=== PATIENT | male | born 1965 | race Hispanic/Latino ===

== ENCOUNTER 2019-12-28 14:37 | Inpatient (IN) | payer SELFPAY ==
[~2019-12-28] VITALS: Ht 170.2 cm; Wt 84.0 kg
--- NOTE | 2019-12-28 14:40 | NUR ---
PT AMB TO ROOM WITH LIMPING GAIT.
--- NOTE | 2019-12-28 15:40 | NUR ---
PT RESTING ON STRETCHER; NO S/S OF DISTRESS NOTED; MONITORING DEVICES APPLIED; PT INFORMED OF POC AND WAIT TIME; VSS; DENIES ANY NEEDS AT THIS TIME
[2019-12-28] MEDS ORDERED: METFORMIN HCL500 M1 PO (15:49)
[2019-12-28] MEDS ORDERED: GLIMEPIRIDE2 MG PO (15:49)
[2019-12-28 15:51] LABS: HEMATOCRIT 28.8 % (39.0-50.0); HEMOGLOBIN 9.6 g/dl (14.0-18.0); IMMATURE GRANULOCYTES 0.8 % (0.0-5.0); MEAN CELL VOLUME 89.7 fL CALC (80.0-100.0); MEAN CORPUSCULAR HGB 29.9 pG CALC (26.0-32.0); MEAN CORPUSCULAR HGB CONC 33.3 g/dL CAL (32.0-36.0); NEUT# 19.18 thou/uL (1.82-7.42); RED BLOOD COUNT 3.21 mill/uL (4.70-6.10); RED CELL DISTRI WIDTH 11.4 % (11.5-15.5)
[2019-12-28 15:55] LABS: ALBUMIN 2.6 g/dL (3.2-5.0); ALKALINE PHOSPHATASE 167 u/l (38-126); ANION GAP 15 (6-22 (CALC)); BILIRUBIN, TOTAL 0.4 mg/dL (0.0-1.4); BUN 20 mg/dL (9-20); BUN/CREATININE RATIO 17 (12-20 (CALC)); C-REACTIVE PROTEIN 7.5 mg/dL (0-0.9); CARBON DIOXIDE 23 mmol/l (22-30); CHLORIDE 93 mmol/l (95-108); CREATININE 1.2 mg/dL (0.7-1.3); GFR > 60 ML/MIN (>=60 (CALC)); GFR FOR AFR.AMER. > 60 ML/MIN (>=60 (CALC)); SGOT/AST 37 u/l (17-59); SODIUM 127 mmol/l (137-146); TOTAL PROTEIN 6.4 g/dL (6.3-8.2)
--- NOTE | 2019-12-28 16:39 | NUR ---
PT TO RADIOLOGY AT THIS TIME IN STABLE CONDITION
--- NOTE | 2019-12-28 17:30 | NUR ---
PT RESTING ON STRETCHER; NO S/S OF DISTRESS NOTED; MONITORING DEVICES IN PLACE; VSS; IV ANTIBIOTICS AND IVF INFUSING; CALL LIGHT WITHIN REACH; WILL CONTIUNE TO MONITOR
[2019-12-28 18:30] VITALS: BP 142/77
--- NOTE | 2019-12-28 18:30 | NUR ---
Admission Note Report Given to: KAREN CONNORS Transported by: Wheelchair X Stretcher Transported with: X Nurse Transporter X Patent IV O2 Processes Chemical Design Engineer Location: ICU X MS2
--- NOTE | 2019-12-28 22:00 | NUR ---
REPORT RECEIVED FROM Sonu RICHARDSON RN, CARE OF PT ASSUMED @ THIS TIME.
--- NOTE | 2019-12-29 00:42 | NUR ---
PER REPORT PT ARRIVED TO UNIT 12/28/19 @ 1830 FROM ED. ADMISSION AND ASSESMENT COMPLETED. RLE WITH UNSTAGEABLE ULCER BETWEEN 1ST AND 2ND TOE, WOUND BED COVERED IN DRY BLACK ESCHAR. FOUL SMELLING. OPEN TO AIR. +2 PITTING EDEMA TO ANKLE. PT DENIES PAIN. PHOTOS TAKEN AND PLACED IN CHART. PT DENIES NEEDS AT THIS TIME. CALL GONZALEZ WITHIN REACH, AGREES TO CALL PRN. BED LOCKED IN LOW POSITION W/ BEDRAILS UP X2. ITEMS WITHIN REACH.
[2019-12-29 04:34] VITALS: BP 150/87
--- NOTE | 2019-12-29 04:34 | NUR ---
PT APPEARS TO BE SLEEPING COMFORTABLY. NO APPARENT DISTRESS. RESPIRATIONS REGULAR AND UNLABORED. CALL GONZALEZ REMAINS WITHIN REACH, FALL AND SAFETY INTERVENTIONS REMAIN IN PLACE.
[2019-12-29 05:22] LABS: HEMATOCRIT 26.1 % (39.0-50.0); HEMOGLOBIN 8.7 g/dl (14.0-18.0); IMMATURE GRANULOCYTES 0.6 % (0.0-5.0); MEAN CELL VOLUME 89.1 fL CALC (80.0-100.0); MEAN CORPUSCULAR HGB 29.7 pG CALC (26.0-32.0); MEAN CORPUSCULAR HGB CONC 33.3 g/dL CAL (32.0-36.0); NEUT# 15.96 thou/uL (1.82-7.42); RED BLOOD COUNT 2.93 mill/uL (4.70-6.10); RED CELL DISTRI WIDTH 11.5 % (11.5-15.5)
[2019-12-29 05:45] LABS: ANION GAP 10 (6-22 (CALC)); BUN 18 mg/dL (9-20); BUN/CREATININE RATIO 20 (12-20 (CALC)); CARBON DIOXIDE 24 mmol/l (22-30); CHLORIDE 102 mmol/l (95-108); CREATININE 0.9 mg/dL (0.7-1.3); GFR > 60 ML/MIN (>=60 (CALC)); GFR FOR AFR.AMER. > 60 ML/MIN (>=60 (CALC)); POTASSIUM 4.2 mmol/l (3.5-5.1); SODIUM 132 mmol/l (137-146)
[2019-12-29 09:10] VITALS: BP 164/81
--- NOTE | 2019-12-29 09:10 | NUR ---
PT RESTING IN BED, NO SIGNS OF DISTRESS NOTED, RESP EVEN AND UNLABORED. PT ALERT AND ORIENTED X3, VINCENTIAN SPEAKING ONLY, DISCUSSED POC, PT VERBALIZED UNDERSTANDING. NOTED AREA TO R FOOT, OPEN AND DRAINING FOUL SMELLING DRAINAGE. ASSESSMENT COMPLETED, CALL LIGHT IN REACH,CONTINUE TO MONITOR.
--- NOTE | 2019-12-29 10:42 | NUR ---
PT RESTING IN BED, DISCUSSED MORPHINE PT AGREED TO TAKE MEDICATION. CALL LIGHT IN REACH,CONTINUE TO MONITOR.
--- NOTE | 2019-12-29 12:09 | NUR ---
DISCUSSED NORVASC, BP OBTAINED, PT AGREED TO TAKE NEW MEDICATION. DISCUSSED IS AND PT DEMONSTRATED TEACHING, TOTAL VOLUME 1500ML AT THIS TIME. CALL LIGHT IN REACH,CONTINUE TO MONITOR.
--- NOTE | 2019-12-29 14:53 | NUR ---
S: SALENA BOYLE is a 54 M who presents with SEPSIS. He has a history of RIGHT FOOT INFECTION. All medications in patient's chart were reviewed. O: VS: BP 159/79, P 86, RR 19,T 99.5 W 84 kg, HT 67IN, Scr= 0.9,CrCl= 99ml/min A: Blood culture <is pending Urine culture <is pending P: Patient is on ZOSYN 3.375GM Q6H AND VANCOMYCIN PHARMACY TO DOSE. Vancomycin ordered for pharmacy to dose. Start Vancomycin 1250MG IV Q8H. Vancomycin trough is drawn before the 4th dose on 12/30/19 1330. Vancomycin goal trough is between 15-20 mcg/ml>. Pharmacy will follow and or advise on antibiotics use as needed. ANI JARA PHARMD
[2019-12-29 15:10] VITALS: BP 177/85
--- NOTE | 2019-12-29 15:13 | NUR ---
PT TAKEN DOWN FOR CT OF R FOOT VIA WHEELCHAIR ACCOMPANIED BY GOLF CLUB WEIGHTER.
--- NOTE | 2019-12-29 15:36 | NUR ---
PT RETURNED FROM RADIOLOGY
--- NOTE | 2019-12-29 16:27 | NUR ---
RN AT BEDSIDE GIVING IV APRESOLINE FOR BP
[2019-12-29 16:29] VITALS: BP 179/82
[2019-12-29 18:13] VITALS: BP 148/71
--- NOTE | 2019-12-29 19:00 | NUR ---
REPORT RECEIVED FROM Lee AKSPER LPN, CARE OF PT ASSUMED @ THIS TIME. PT RESTING IN BED, NO APPARENT DISTRESS OR DISCOMFORT. DENIES NEEDS @ THIS TIME. CALL GONZALEZ WITHIN REACH, AGREES TO CALL PRN.
[2019-12-29 19:10] VITALS: BP 130/67
--- NOTE | 2019-12-29 21:15 | NUR ---
PHYSICAL ASSESMENT COMPLETED. VS TAKEN BY MATT @ 1910 ASSESSED. PLAN OF CARE REVIEWED, PT VERBALIZES UNDERSTANDING, DENIES QUESTIONS @ THIS TIME. SEE MAR FOR MED ADMINASTRATION. PT DENIES NEEDS @ THIS TIME, CALL GONZALEZ WITHIN REACH, AGREES TO CALL PRN. BED LOCKED IN LOW POSITION W/ BEDRAILS UP X2. ITEMS WITHIN REACH.
[2019-12-30] VITALS: BP 135/79
--- NOTE | 2019-12-30 01:21 | NUR ---
VS TAKEN BY DIRECTOR OF INSTITUTIONAL RESEARCH @ 0000 ASSESSED. PT APPEARS TO BE SLEEPING COMFORTABLY, NO APPARENT DISTRESS, RESP REGUALR AND UNLABORED. CALL GONZALEZ REMAINS WITHIN REACH, BED REMAINS LOCKED IN LOW POSITION W/ BEDRAILS UP X2.ITEMS REMAIN WITHIN REACH.
[2019-12-30 04:39] VITALS: BP 150/76
[2019-12-30 05:08] LABS: HEMATOCRIT 24.9 % (39.0-50.0); HEMOGLOBIN 8.2 g/dl (14.0-18.0); IMMATURE GRANULOCYTES 0.9 % (0.0-5.0); MEAN CELL VOLUME 91.2 fL CALC (80.0-100.0); MEAN CORPUSCULAR HGB CONC 32.9 g/dL CAL (32.0-36.0); NEUT# 14.39 thou/uL (1.82-7.42); RED BLOOD COUNT 2.73 mill/uL (4.70-6.10); RED CELL DISTRI WIDTH 11.8 % (11.5-15.5)
[2019-12-30 05:16] LABS: ALBUMIN 2.1 g/dL (3.2-5.0); ALKALINE PHOSPHATASE 129 u/l (38-126); ANION GAP 10 (6-22 (CALC)); BILIRUBIN, TOTAL 0.3 mg/dL (0.0-1.4); BUN 18 mg/dL (9-20); BUN/CREATININE RATIO 15 (12-20 (CALC)); CARBON DIOXIDE 24 mmol/l (22-30); CHLORIDE 103 mmol/l (95-108); CREATININE 1.2 mg/dL (0.7-1.3); GFR > 60 ML/MIN (>=60 (CALC)); GFR FOR AFR.AMER. > 60 ML/MIN (>=60 (CALC)); POTASSIUM 4.1 mmol/l (3.5-5.1); SGOT/AST 22 u/l (17-59); SODIUM 134 mmol/l (137-146); TOTAL PROTEIN 5.5 g/dL (6.3-8.2)
--- NOTE | 2019-12-30 06:45 | NUR ---
VS TAKEN BY CRISTOPHER AM ASSESSED. PT APPEARS TO BE SLEEPING COMFORTABLY, NO APPARENT DISTRESS, RESP REGUALR AND UNLABORED. CALL GONZALEZ REMAINS WITHIN REACH, BED REMAINS LOCKED IN LOW POSITION W/ BEDRAILS UP X2.ITEMS REMAIN WITHIN REACH.
[2019-12-30 07:52] VITALS: BP 160/72
--- NOTE | 2019-12-30 07:52 | NUR ---
PT SITTING ON SIDE OF THE BED. A&O X3. NO DISTRESS NOTED. IS DEVICE AT BEDSIDE, PT DEMONSTRATING PROPER USE OF DEVICE WITH GOAL SET AT 2000. EXPLAINED TO PT THAT DEVICE SHOULD BE USED X10 EVERY HOUR WHILE AWAKE, PT VERBALIZED UNDERSTANDING. CELLULITIS AND DIABETIC WOUND NOTED TO RT FOOT. FOUL ODOR NOTED WITH CLEAR DRAINAGE. PER RADHA GUALDE KEEP OPEN TO AIR WITH NO DRESSING. ASSESSMENT COMPLETED. CALL LIGHT IN REACH. CONTINUE TO MONITOR.
[2019-12-30 11:33] VITALS: BP 150/76
--- NOTE | 2019-12-30 11:40 | NUR ---
DR KENT AT BEDSIDE DISCUSSING POC WITH PT WITH I&D SURGERY TO BE DONE TOMORROW . PER DONTE PT TO BE NPO AFTER MIDNIGHT. PT VERBALIZED UNDERSTANDING.
--- NOTE | 2019-12-30 14:14 | NUR ---
VANCOTROUGH 14. ABX GIVEN.
--- NOTE | 2019-12-30 14:46 | NUR ---
S: SALENA BOYLE is a 54 M who presents with WOUND INFECTION. He has a history of FOOT INFECTION . All medications in patient's chart were reviewed. O: VS: BP 150/76, P 79, RR 18,T 99 W 84kg, HT 67IN, Scr=1.2 A: Blood culture <is pending P: Patient is on ZOSYN AND VANCOMYCIN. TROUGH IS 14 ON 12/30/19 Vancomycin ordered for pharmacy to dose. Start Vancomycin 1 GRAM IV Q8H. Vancomycin trough is drawn before the 4th dose on 01/01/20 @0530 . Vancomycin goal trough is between <10-20 mcg/ml>. Pharmacy will follow and or advise on antibiotics use as needed.
[2019-12-30 15:20] VITALS: BP 152/77
--- NOTE | 2019-12-30 17:25 | NUR ---
WERO HERRERA AT BEDSIDE DISCUSSING ANESTHESIA AND OBTAINING CONSENT FOR TOMORROW.
[2019-12-30 18:55] VITALS: BP 150/78
--- NOTE | 2019-12-30 19:45 | NUR ---
ASSESSMENT COMPLETED. NO DISTRESS NOTED; DENIES PAIN/NEEDS. RIGHT FOOT WITH WOUND NOTED AND SCREEN PRINTER HELPER PER PHYSICIAN; EDEMA NOTED. PT. REMINDED OF NPO STATUS AFTER MIDNIGHT. PT. REPORTS NO BMSINCE 12/28/19 AND OFFERED PRUNE JUICE; PT. DECLINES. RIGHT FOOT ELEVATED ONTO PILLOW AND ENCOURAGED TO DO SO WHILE IN BED. IV SITE PATENT AND ORDERED IVF INFUSING WELL. ENCOURAGED TO CALL FOR ANY NEEDS. CALL LIGHT IS IN REACH. WILL CONTINUE TO MONITOR.
--- NOTE | 2019-12-30 23:36 | NUR ---
PT. RESTING IN BED WITH RLE ELEVATED ONTO PILLOW. OFFERED PO FLUIDS PRIOR TO NPO STATUS AT MIDNIGHT; PT. DID HAVE A YOGURT AND PRUNE JUICE PROVIDED BY THIS HERPETOLOGY TEACHER TO ASSIST WITH BM FOR SNACK TONIGHT. INSTRUCTED TO USE URINAL FOR ACCURATE OUTPUT. DENIES NEEDS FOR PAIN MEDICATION AT THIS TIME. INSTRUCTED TO CALL FOR ANY NEEDS AND VERBALIZES UNDERSTANDING. CALL LIGHT IS IN REACH.
[2019-12-31] VITALS (15 sets, daily range): BP systolic 119–177; BP diastolic 63–89
--- NOTE | 2019-12-31 02:00 | NUR ---
RESTING IN BED WITH EYES CLOSED. RESP. EVEN AND UNLABORED.
--- NOTE | 2019-12-31 05:00 | NUR ---
PT. SET UP FOR SHOWER AND LINENS CHANGED. PT. HAS REMAINED NPO SINCE MIDNIGHT. SCD MACHINE IN ROOM FOR POST OP. I/S AT BEDSIDE.
--- NOTE | 2019-12-31 07:05 | NUR ---
REPORT RECEIVED FROM ELAINERN;PT RESTING IN SUPINE POSITION;PT IS NOTED TO BE FAROESE SPEAKING ONLY BUT DOES VERBALIZE UNDERSTANDING OF PLANS TO GO TO OR @ 0830AM;RESPIRATIONS EVEN AND UNLABORED ON RA;PT DENIES ANY CURRENT PAIN OR DISCOMFORTS;IV FLUIDS INFUSING WITH EASE PER ORDER;NPO DIET REINFORCED;PT DENIES ANY ADDITIONAL NEEDS AT THIS TIME AND IS ENCOURAGED TO CALL FOR ASSISTANCE IF NEEDED;ALL SAFETY PRECAUTIONS REINFORCED WITH BED IN THE LOWEST POSITION AND CALL LIGHT IN REACH;WILL CONTINUE TO MONITOR
--- NOTE | 2019-12-31 07:39 | NUR ---
PT TRANSPORTED TO OR IN STABLE CONDITION VIA STRETCHER ACCOMPANIED BY KAREN GARAY.
--- NOTE | 2019-12-31 10:36 | NUR ---
PT ARRIVED BACK TO MED/SURG ROOM 269 IN STABLE CONDITION VIA STRETCHER ACCOMPANIED BY OR STAFF MEMBER.PT ASSISTED TO HOSPITAL BED WITH X2 PERSON ASSIST;PT RE-ORIENTED TO ROOM AND CALL LIGHT SYSTEM;PT DENIES ANY CURRENT PAIN OR DISCOMFORTS,PAIN SCALE AND REPORTING EDUCATED;VS OBTAINED AND TO BE OBTAINED Q15 MINS PER [facility] PROTOCAL;RESPIRATIONS EVEN AND UNLABORED ON O2 @ 4L VIA VENTI MASK;ABDOMEN DISTENDED/SOFT ON PALPATION AND HYPOACTIVE IN ALL 4 QUADRANTS;WEAK LEFT PEDAL PULSE,SCD IN PLACE;RIGHT FOOT ELEVATED ON A PILLOW PER ORDER AND DRESSING CDI,WILL REINFORCE NEEDED;CAP REFILL LESS THAN 3 SECONDS;#20G TO LAC INFUSING NS WITH EASE PER ORDER,SITE APPEARS HEALTHY;ACCUCHECK 243;WATER PROVIDED PER REQUEST;PT DENIES ANY ADDITIONAL NEEDS AT THIS TIME AND IS ENCOURAGED TO CALL FOR ASSISTANCE IF NEEDED;FALL PRECAUTIONS IN PLACE AND PT REMINDED ON NWB STATUS TO RLE;CALL LIGHT IN REACH;WILL CONTINUE TO MONITOR
--- NOTE | 2019-12-31 10:54 | NUR ---
AT BEDSIDE DISCUSSING POC WITH PT WITH TRANSLATION PROVIDED BY [employer].
--- NOTE | 2019-12-31 11:44 | NUR ---
XRAY AT BEDSIDE
--- NOTE | 2019-12-31 11:45 | NUR ---
PT RESTING IN SEMI FOWLERS POSITION;RESPIRATIONS EVEN AND UNLABORED ON RA;PT DENIES ANY CURRENT PAIN OR DISCOMFORTS;IV FLUIDS INFUSING WITH EASE TO LAC AND ABX STARTED AT THIS TIME;ACUCHECK 243,PT COVERED WITH SLIDING SCALE NOVOLOG PER ORDER;RLE REMAINS ELEVATED;PT DENIES ANY ADDITIONAL NEEDS AND IS ENCOURAGED TO CALL FOR ASSISTANCE IF NEEDED;CALL LIGHT IN REACH;WILL CONTINUE TO MONITOR
[2019-12-31 14:50] LABS: HEMATOCRIT 23.2 % (39.0-50.0); HEMOGLOBIN 7.7 g/dl (14.0-18.0); MEAN CORPUSCULAR HGB 30.2 pG CALC (26.0-32.0); MEAN CORPUSCULAR HGB CONC 33.2 g/dL CAL (32.0-36.0); RED BLOOD COUNT 2.55 mill/uL (4.70-6.10); RED CELL DISTRI WIDTH 11.9 % (11.5-15.5)
[2019-12-31 15:43] LABS: ANION GAP 9 (6-22 (CALC)); BUN 17 mg/dL (9-20); BUN/CREATININE RATIO 13 (12-20 (CALC)); CARBON DIOXIDE 22 mmol/l (22-30); CHLORIDE 107 mmol/l (95-108); CREATININE 1.3 mg/dL (0.7-1.3); GFR 58 ML/MIN (>=60 (CALC)); GFR FOR AFR.AMER. > 60 ML/MIN (>=60 (CALC)); POTASSIUM 4.3 mmol/l (3.5-5.1); SODIUM 134 mmol/l (137-146)
--- NOTE | 2019-12-31 15:50 | NUR ---
PT RESTING IN SEMI FOWLERS POSITION.RESPIRATIONS EVEN AND UNLABORED ON RA;PT REPORTS RLE PAIN RATING 6/10 ON THE PAIN SCALE AND REQUESTS PAIN MEDICATION,PT TO BE MEDICATED WITH PRN MORPHINE 2MG IVP PER ORDERS;RLE REMAINS ELEVATED WITH DRESSING CDI;IV FLUIDS INFUSING WITH EASE TO LAC;ASSESSMENT REMAINS UNCHANGED AT THIS TIME;PT ENCOURAGED TO CALL FOR ASSISTANCE IF NEEDED;FALL PRECAUTIONS IN PLACE WITH BED IN THE LOWEST POSITION AND CALL LIGHT IN REACH;WILL CONTINUE TO MONITOR
--- NOTE | 2019-12-31 18:34 | NUR ---
PT RESTING IN SEMI FOWLERS POSITION;PT DENIES ANY CURRENT PAIN OR DISCOMFORT;CURRENT TEMP 100.1,BLANKETS REMOVED,AC LOWERED AND TYLENOL 650MG PO TO BE ADMINISTERED;CURRENT BP 168/84 HR 90, PT MEDICATED WITH PRN APRESOLINE 10MG IVP BY KAREN AMARO;PT DENIES ANY ADDITIONAL NEEDS;CALL LIGHT IN REACH;WILL CONTINUE TO MONITOR FOR EFFECTIVENESS
--- NOTE | 2019-12-31 20:40 | NUR ---
ASSESSMENT COMPLETED. NO DISTRESS NOTED; DENIES NEEDS/PAIN. UPDATED ON POC. RIGHT FOOT ELEVATED ONTO PILLOW; SURGICAL DRESSING IN PLACE, GREAT TOE APPEARS SLIGHLY PALE; GOOD MOVEMENT AND CAP REFILL. LEFT ARM APPEARS SLIGHTLY EDEMETOUS, WILL REMOVE IV SITE AND RESTART SITE. ENCOURAGED USE OF I/S AND VERBALIZES UNDERSTANDING. CALL LIGHT IS IN REACH. WILL CONTINUE TO MONITOR.
--- NOTE | 2019-12-31 21:30 | NUR ---
PT. PROVIDED WITH SCHED MEDS ALONG WITH PRN MOM TO ASSIST WITH BM AND ACTIVIA YOGURT GIVEN. URINAL AT BEDSIDE. LAC IV SITE REMOVED AND NEW IV STARTED TO RIGHT HAND X1 ATTEMPT. PT. TOLERATED WELL.
[2020-01-01] VITALS (7 sets, daily range): BP systolic 142–171; BP diastolic 78–97
--- NOTE | 2020-01-01 | NUR ---
PT. ASSISTED TO THE BATHROOM WITH STBY ASST AND WALKER, PT. RE-EDUCATED ON NWB STATUS TO RIGHT FOOT. PT. PASSING GAS, BUT NO BM STILL AND VOIDED IN TOILET. ASSISTED BACK TO BED. DENIES NEEDS FOR PAIN MEDS AT THIS TIME. CALL LIGHT IS IN REACH.
--- NOTE | 2020-01-01 00:29 | NUR ---
PT. CONTINUES TO BE ABLE TO WIGGLE TOES TO RIGHT FOOT AND FEEL SENSATION. DRESSING REMAINS IN PLACE. DENIES NEEDS FOR PAIN MEDS.
--- NOTE | 2020-01-01 02:08 | NUR ---
PT. RESTING IN BED WITH EYES CLOSED. DRESSING REMAINS CDI. NO CHANGE TO EXTREMITY. COLOR REMAINS THE SAME.
--- NOTE | 2020-01-01 05:50 | NUR ---
PT. RESTING IN BED WITH NO DISTRESS NOTED; DENIES NEEDS/PAIN. COLOR TO RIGHT FOOT APPEAR THE SAME, NO CHANGE. PT. ABLE TO WIGGLE TOES AND VERBALIZES SENSATION. MOM WITH WARM PRUNE JUICE GIVEN TO ASSIST WITH BM. ENCOURAGED TO CALL FOR ANY NEEDS. CALL LIGHT IS IN REACH.
--- NOTE | 2020-01-01 07:10 | NUR ---
REPORT RECEIVED FROM ELAINERN;PT RESTING IN SEMI FOWLERS POSITION;INTRODUCED SELF TO PT AND POC DISCUSSED;RESPIRATIONS EVEN AND UNLABORED ON RA;PT DENIES ANY CURRENT PAIN OR NEEDS;IV FLUIDS INFUSING WITH EASE PER ORDER;RLE ELEVATED ON A PILLOW;PT ENCOURAGED TO CALL FOR ASSISTANCE IF NEEDED;FALL PRECAUTIONS IN PLACE WITH BED IN THE LWOEST POSITION AND CALL LIGHT IN REACH;WILL CONTINUE TO MONITOR
[2020-01-01 07:28] LABS: HEMATOCRIT 24.9 % (39.0-50.0); MEAN CELL VOLUME 91.9 fL CALC (80.0-100.0); MEAN CORPUSCULAR HGB 29.5 pG CALC (26.0-32.0); MEAN CORPUSCULAR HGB CONC 32.1 g/dL CAL (32.0-36.0); NEUT# 14.33 thou/uL (1.82-7.42); RED BLOOD COUNT 2.71 mill/uL (4.70-6.10); RED CELL DISTRI WIDTH 12.1 % (11.5-15.5)
[2020-01-01 07:46] LABS: ALBUMIN 2.5 g/dL (3.2-5.0); BILIRUBIN, TOTAL 0.2 mg/dL (0.0-1.4); CREATININE 1.9 mg/dL (0.7-1.3); POTASSIUM 4.2 mmol/l (3.5-5.1); TOTAL PROTEIN 6.5 g/dL (6.3-8.2)
--- NOTE | 2020-01-01 07:49 | NUR ---
AT BEDSIDE DISCUSSING POC WITH PT.
--- NOTE | 2020-01-01 08:00 | NUR ---
PT RESTING IN SEMI FOWLERS POSITION,A&O X3;VS OBTAINED AND ASSESSMENT COMPLETED;PT DENIES ANY CURRENT PAIN OR DISCOMFORTS,PAIN SCALE AND REPORTING EDUCATED;PT IS POST OP DAY #1 I&D OF RIGHT FOOT;RESPIRATIONS EVEN AND UNLABORED ON RA,CLEAR LUNG SOUNDS;PT ENCOURAGED TO USE I.S. 10X PER HOUR AND VERBALIZES UNDERSTANDING;ABDOMEN SOFT ON PALPATION AND ACTIVE IN ALL 4 QUADRANTS;WEAK LEFT PEDAL PULSE,UNABLE TO PALPATE RIGHT DUE TO DRESSING IN PLACE;DRESSING CDI AND RT FOOR ELEVATED ON A PILLOW,CAP REFILL LESS THAN 3 SECONDS.GREAT TOE REMAINS PALE;#220G TO RH HAND INFUSING NS @ 70ML/HR,SITE APPEARS HEALTHY;PT DENIES ANY ADDITIONAL NEEDS AT THIS TIME AND IS ENCOURAGED TO CALL FOR ASSISTANCE IF NEEDED;FALL PRECAUTIONS IN PLACE WITH BED IN THE LOWEST POSITION AND PT RE-EDUCATED ON NWB TO RIGHT FOOT;PT ENCOURAGED TO CALL FOR ASSISTANCE IF NEEDED;CALL LIGHT IN REACH;WILL CONTINUE TO MONITOR
--- NOTE | 2020-01-01 09:40 | NUR ---
AT BEDSIDE DISCUSSING POC,TRANSLATION PROVIDED BY [facility] [employer]
--- NOTE | 2020-01-01 11:17 | NUR ---
PT RESTING IN SEMI FOWLERS POSITION;RESPIRATIONS EVEN AND UNLABORED ON RA;PT DENIES ANY CURRENT PAIN OR DISCOMFORTS;RLE REMAINS ELEVATED,RT GREAT TOE NOTED TO BE BLUE AND COLD. AND CALVIN ALREADY AWARE AND NO NEW ORDERS AT THIS TIME;IV FLUIDS INFUSING WITH EASE AND ABX INITATED;ACCUCHECK 249, PT COVERED WITH SLIDING SCALE NOVOLOG PER ORDER;PT ENCOURAGED TO CALL FOR ASSISTANCE IF NEEDED;CALL LIGHT IN REACH;WILL CONTINUE TO MONITOR
--- NOTE | 2020-01-01 11:23 | NUR ---
SPOKE WITH ELINA,OR ZACKERY REGARDING PT POC. PER ELINA PT TO BE PICKED UP FROM MED/SURG TOMORROW 01/02/20 FOR METATARSAL AMPUTATION AND POSSIBLE WOUND VAC PLACEMENT.
--- NOTE | 2020-01-01 15:30 | NUR ---
PT APPEARS TO BE SLEEPING IN SEMI FOWLERS POSITION;RESPIRATIONS APPEAR EVEN AND UNLABORED ON RA;NO S/S OF DISTRESS NOTED;IV FLUIDS INFUSING WITH EASE PER ORDER;RLE REMAINS ELEVATED WITH RT GREAT TOE APPEARING BLUE,MD ALREADY AWARE;PER OR PT TO BE TAKEN DOWN FOR POSSIBLE AMPUTATION OF RT MATATARSALS AND POSSIBLE WOUND VAC PLACEMENT ON 01/03/20 INSTEAD OF 01/02/20 @ APPROX 1430;ALL SAFETY PRECAUTIONS REMAIN IN PLACE WITH CALL LIGHT IN REACH;WILL CONTINUE TO MONITOR
--- NOTE | 2020-01-01 16:25 | NUR ---
S: SALENA BOYLE is a 54 M who presents with cellulitis/infection on right foot. He has a history of uncontrolled DM and HTN. All medications in patient's chart were reviewed. O: VS: BP 157/97 mmHg, P 83 bpm, RR 20 breaths/min, T 98.3 F W 84 kg, HT 67 in, Scr 1.9, CrCl 54 ml/min A: Blood culture is pending. P: Patient is on Zosyn 3.375g IV q6h. Vancomycin ordered for pharmacy to dose. Pt had been receiving vancomycin 1g IV q8h. Initial trough before 4th dose was 14, therefore dose was continued. Next trough was drawn and level was 27. Pt SCr increased from 0.9 to 1.9 -- dose changed to vancomycin 750mg IV q12h starting 12/31 @ 2200. Vancomycin trough to be drawn 30 minutes before 4th dose on 01/02 @ 0930. Vancomycin goal trough is between 10-15 mcg/ml. Pharmacy will follow and or advise on antibiotics use as needed.
--- NOTE | 2020-01-01 19:38 | NUR ---
PT. RESTING IN BED WITH NO DISTRESS NOTED; DENIES NEEDS/PAIN AT THIS TIME.ASSESSMENT COMPLETED. RLE ELEVATED ONTO PILLOW. RIGHT GREAT TOE DISCOLORED, PT. ABLE TO WIGGLE ALL TOES. POSTERIOR TIBIAL PULSE PRESENT TO RIGHT FOOT; SURGICAL DRESSING CDI. ENCOURAGED USE OF I/S. PT. REPORTS SMALL HARD BM IN THE AFTERNOON TODAY. B/P ELEVATED 178/80 AND MEDICATED WITH ORDERED IV APRESOLINE, WILL REASSESS. CALL LIGHT IS IN REACH.
--- NOTE | 2020-01-01 23:08 | NUR ---
RESTING IN BED WITH EYES CLOSED; RESP. EVEN AND UNLABORED. NO DISTRESS NOTED; RIGHT FOOT REMAINS WITH SAME COLOR AND ELEVATED. CALL LIGHT IS IN REACH. WILL CONTINUE TO MONITOR.
[2020-01-02] VITALS (7 sets, daily range): BP systolic 146–176; BP diastolic 76–92
--- NOTE | 2020-01-02 02:20 | NUR ---
RESTING IN BED WITH NO DISTRESS NOTED; DENIES NEEDS/PAIN. RLE ELEVATED. CALL LIGHT IS IN REACH.
--- NOTE | 2020-01-02 04:47 | NUR ---
ELEVATED B/P AT 172/80 AND MEDICATED WITH ORDERED PRN HYDRALAZINE; WILL REASSESS. MEDICATED WITH ORDERED PRN MOM WELL TO ASSIST WITH BM. DENIES NEEDS/PAIN. ENCOURAGED TO CALL FOR ANY NEEDS.
--- NOTE | 2020-01-02 05:35 | NUR ---
REASSESSED B/P AND NOW 160/81; DENIES NEEDS/PAIN. CALL LIGHT IS IN REACH.
--- NOTE | 2020-01-02 07:10 | NUR ---
REPORT RECEIVED FROM KAREN HENRY;PT APPEARS TO BE SLEEPING IN SEMI FOWLERS POSITION;RESPIRATIONS EVEN AND UNLABORED ON RA;NO S/S OF DISTRESS NOTED;IV FLUIDS INFUSING WITH EASE PER ORDER;RLE ELEVATED ON A PILLOW;ALL SAFETY PRECAUTIONS REINFORCED WITH BED IN THE LOWEST POSITION AND CALL LIGHT IN REACH;WILL CONTINUE TO MONITOR
--- NOTE | 2020-01-02 08:00 | NUR ---
PT RESTING IN SEMI FOWLERS POSITION,A&O X3;PT IS SIERRA LEONEAN SPEAKING ONLY,TRANSLATION PROVIDED BY [facility] [employer];VS OBTAINED AND ASSESSMENT COMPLETED,CURRENT BP 176/92 HR 84;ALL MORNING MEDICATIONS ADMINISTERED AT THIS TIME;PT DENIES ANY CURRENT PAIN OR DISCOMFORTS,PAIN SCALE AND REPORTING EDUCATED;PT IS POST OP DAY #2 I&D TO RIGHT FOOT;RESPIRATIONS EVEN AND UNLABORED ON RA,CLEAR LUNG SOUNDS;I.S. AT BEDSIDE AND PT DEMONSTRATED USE,ENCOURAGED USE 10X PER HOUR;ABDOMEN DISTENDED/SOFT ON PALPATION AND ACTIVE IN ALL 4 QUADRANTS;WEAK LEFT PEDAL PULSES, UNABLE TO PALPATE RIGHT DUE TO DRESSING;DRESSING CDI TO RT FOOT AND ELEVATED ON A PILLOW;RIGHT GREAT TOE NOTED TO BE BLUE TONED AND COLD, MD ALREADY AWARE;NWB TO RIGHT FOOT;#22G TO RIGHT HAND INFUSING NS @ 100ML/HR,SITE APPEARS HEALTHY;ACCUCHECK 143;PT DENIES ANY ADDITIONAL NEEDS AT THIS TIME AND IS ENCOURAGED TO CALL FOR ASSISTANCE IF NEEDED;CALL LIGHT IN REACH;WILL CONTINUE TO MONITOR
[2020-01-02 08:11] LABS: HEMATOCRIT 28.7 % (39.0-50.0); HEMOGLOBIN 9.3 g/dl (14.0-18.0); IMMATURE GRANULOCYTES 1.4 % (0.0-5.0); MEAN CORPUSCULAR HGB 29.8 pG CALC (26.0-32.0); MEAN CORPUSCULAR HGB CONC 32.4 g/dL CAL (32.0-36.0); NEUT# 15.7 thou/uL (1.82-7.42); RED BLOOD COUNT 3.12 mill/uL (4.70-6.10); RED CELL DISTRI WIDTH 12.3 % (11.5-15.5)
[2020-01-02 08:31] LABS: ALBUMIN 2.6 g/dL (3.2-5.0); BILIRUBIN, TOTAL 0.2 mg/dL (0.0-1.4); MAGNESIUM 1.9 mg/dL (1.6-2.3); POTASSIUM 3.9 mmol/l (3.5-5.1); TOTAL PROTEIN 6.9 g/dL (6.3-8.2)
--- NOTE | 2020-01-02 09:02 | NUR ---
KAREN BANUELOS AT BEDSIDE DISCUSSING POC.
--- NOTE | 2020-01-02 09:08 | NUR ---
BP RE-CHECK 155/78 HR 80
--- NOTE | 2020-01-02 09:10 | NUR ---
VIN,ANRP AT BEDSIDE DISCUSSING POC.
--- NOTE | 2020-01-02 09:17 | NUR ---
AT BEDSIDE DISCUSSING POC.
--- NOTE | 2020-01-02 11:10 | NUR ---
PT RESTING IN SEMI FOWLERS;RESPIRATIONS EVEN AND UNLABORED ON RA;PT DENIES ANY CURRENT PAIN OR DISCOMFORTS;IV FLUIDS INFUSING WITH EASE PER ORDER;ACCUCHECK 196, PT COVERED WITH SLIDING SCALE NOVOLOG PER ORDER;ASSESSMENT REMAINS UNCHANGED AT THIS TIME;ENCOURAGED TO CALL FOR ASSISTANCE IF NEEDED;CALL LIGHT IN REACH;WILL CONTINUE TO MONITOR
--- NOTE | 2020-01-02 15:30 | NUR ---
PT APPEARS TO BE SLEEPING IN SEMI FOWLERS POSITION;RESPIRATIONS EVEN AND UNLABORED ON RA;NO S/S OF DISTRESS NOTED;IV FLUIDS INFUSING WITH EASE;RLE ELEVATED ON A PILLOW;ASSESSMENT REMAINS UNCHANGED AT THIS TIME;ALL SAFETY PRECAUTIONS REMAIN IN PLACE WITH BED IN THE LOWEST POSITION AND CALL LIGHT IN REACH;WILL CONTINUE TO MONITOR
--- NOTE | 2020-01-02 19:05 | NUR ---
REPORT FROM MARGARET ROGERS. PT RESTING IN BED WATCHING TV. NO APPARENT DISTRESS NOTED. PT DENIES ANY PAIN OR DISCOMFORT. DRESSING TO RLE, CDI, RIGHT GREAT TOE BLUE IN COLOR REPORTED FROM OFFGOING NURSE. PT AWARE OF NPO AFTER MIDNIGHT FOR SX TOMORROW. NO CURRENT WANTS OR NEEDS. IV SITE APPEARS HEALTHY. CALL LIGHT WITHIN REACH. WILL CONTINUE TO MONITOR.
--- NOTE | 2020-01-02 21:05 | NUR ---
PT MEDICATED ORDERED. SNACK PROVIDED. DENIES ANY PAIN OR DISCOMFORT. CALL LIGHT WITHIN REACH. WILL CONTINUE TO MONITOR.
--- NOTE | 2020-01-02 23:51 | NUR ---
PT RESTING IN BED WITH EYES CLOSED. NO APPARENT DISTRESS NOTED. CALL LIGHT WITHIN REACH. WILL CONTINUE TO MONITOR.
[2020-01-03] VITALS (11 sets, daily range): BP systolic 151–176; BP diastolic 73–88
--- NOTE | 2020-01-03 03:07 | NUR ---
PT RESTING IN BED WITH EYES CLOSED. NO APPARENT DISTRESS NOTED. CALL LIGHT WITHIN REACH. WILL CONTINUE TO MONITOR.
[2020-01-03 05:04] LABS: HEMATOCRIT 28.5 % (39.0-50.0); HEMOGLOBIN 9.1 g/dl (14.0-18.0); IMMATURE GRANULOCYTES 1.3 % (0.0-5.0); MEAN CELL VOLUME 92.8 fL CALC (80.0-100.0); MEAN CORPUSCULAR HGB 29.6 pG CALC (26.0-32.0); MEAN CORPUSCULAR HGB CONC 31.9 g/dL CAL (32.0-36.0); NEUT# 12.77 thou/uL (1.82-7.42); RED BLOOD COUNT 3.07 mill/uL (4.70-6.10); RED CELL DISTRI WIDTH 12.6 % (11.5-15.5)
[2020-01-03 05:21] LABS: ALBUMIN 2.5 g/dL (3.2-5.0); BILIRUBIN, TOTAL 0.2 mg/dL (0.0-1.4); CREATININE 1.9 mg/dL (0.7-1.3); POTASSIUM 4.5 mmol/l (3.5-5.1); TOTAL PROTEIN 6.5 g/dL (6.3-8.2)
--- NOTE | 2020-01-03 07:05 | NUR ---
REPORT RECEIVED FROM SUE PORTER;PT APPEARS TO BE SLEEPING IN SEMI FOWLERS POSITION;RESPIRATIONS EVEN AND UNLABORED ON RA;NO S/S OF DISTRESS NOTED;IV FLUIDS INFUSING WITH EASE PER ORDER;RLE ELEVATED ON A PILLOW;ALL SAFETY PRECAUTIONS IN PLACE WITH BED IN THE LOWEST POSITION AND CALL LIGHT IN REACH;WILL CONTINUE TO MONITOR
--- NOTE | 2020-01-03 07:50 | NUR ---
AT BEDSIDE DISCUSSING POC.
--- NOTE | 2020-01-03 07:53 | NUR ---
KAREN DOMINGUEZ NOTIFIED OF OR CASE SCHEDULED FOR TODAY AT APPROX 1430.
--- NOTE | 2020-01-03 09:20 | NUR ---
PT RESTING IN SEMI FOWLERS POSITION,A&O X3;VS OBTAINED AND ASSESSMENT COMPLETED;PT DENIES ANY CURRENT PAIN OR DISCOMFORTS,PAIN SCALE AND REPORTING EDUCATED;PT POST OP DAY #3 I&D OF RIGHT FOOT;RESPIRATIONS EVEN AND UNLABORED ON RA;ABDOMEN SOFT ON PALPATION AND ACTIVE IN ALL 4 QUADRANTS;WEAK LEFT PEDAL PULSES,UNABLE TO PALPATE RIGHT DUE TO DRESSING;DRESSING TO RLE CDI AND ELEVATED ON A PILLOW PER ORDER;RIGHT GREAT TOE REMAINS BLUE,PALE AND COLD.MD AWARE;#22G TO RIGHT HAND INFUSING NS WITH EASE PER ORDER;PT VERBALIZES UNDERSTANDING OR PLAN FOR OR TODAY;NPO DIET REINFORCCED;PT DENIES ANY ADDITIONAL NEEDS AND IS ENCOURAGED TO CALL FOR ASSISTANCE IF NEEDED;CALL LIGHT IN REACH;WILL CONTINUE TO MONITOR
--- NOTE | 2020-01-03 09:52 | NUR ---
INFORMED CONSENT OBTAINED AT THIS TIME FOR RT FOOT TRANSMETATARSAL AMPUTATATION ,TENDOACHILLES,LENGHENING WITH POSSIBLE WOUND VAC APPLICATION BY KAREN GIRARD
--- NOTE | 2020-01-03 10:02 | NUR ---
AT BEDSIDE DISCUSSING POC.
--- NOTE | 2020-01-03 12:25 | NUR ---
PT TRANSPORTED TO OR IN STABLE CONDITION VIA STRETCHER ACCOMPANIED BY PATRICIA,RN
--- NOTE | 2020-01-03 13:46 | NUR ---
called [facility] for a wound placement on this pt. called at spoke to tori was given a confirmation number of [id number].
--- NOTE | 2020-01-03 15:34 | NUR ---
S: SALENA BOYLE is a 54 M who presents with diabetic wound infection with cellulitis of right foot. O: VS: BP 173/87, P 78, RR 17, T 99.1 W 84kg, HT 67 in, Scr=1.9, CrCl= 47 ml/min Vancomycin trough=18 A: Blood culture is no growth after 5 days. Wound culture of foot is growing MRSA with sensitivity to vancomycin. Decrease in vancomycin dose recommended. P: Patient is on cefepime 2 g IV q12h and vancomycin 750 mg IV Q12h. Vancomycin ordered for pharmacy to dose. Decrease Vancomycin to 1250mg IV Q24H. Vancomycin trough is drawn before the 4th dose on 01/06/20@2230. Vancomycin goal trough is between 10-15 mcg/ml. Pharmacy will follow and or advise on antibiotics use as needed.
--- NOTE | 2020-01-03 16:16 | NUR ---
PT ARRIVED TO MED/SURG ROOM 269 IN STABLE CONDITION VIA STRETCHER ACCOMPANIED BY PATRICIA,OR;PT ASSISTED TO HOSPITAL BED WITH X2 PERSON ASSIST;VS OBTAINED AND TO BE OBTAINED Y62GPRQ PER [facility] PROTOCAL;RESPIRATIONS EVEN AND UNLABORED ON O2 @ 4L VIA NC;PT DENIES ANY CURRENT PAIN OR DISCOMFORTS,PAIN SCALE AND REPORTING EDUCATED;IV FLUIDS INFUSING WITH EASE PER ORDER;RLE DRESSING CDI AND FOOT ELEVATED ON X2 PILLOWS PER ORDER;PT DENIES ANY ADDITIONAL NEEDS AT THIS TIME AND IS ENCOURAGED TO CALL FOR ASSISTANCE IF NEEDED;FALL PRECAUTIONS REMAIN IN PLACE WITH BED IN THE LOWEST POSITION AND CALL LIGHT IN REACH;WILL CONTINUE TO MONITOR
--- NOTE | 2020-01-03 17:16 | NUR ---
XRAY AT BEDSIDE
--- NOTE | 2020-01-03 19:45 | NUR ---
REPORT FROM MARGARET ROGERS. PT RESTING IN BED. NO APPARENT DISTRESS NOTED. PT C/O PAIN 10/10 IN RLE. FOOT ELEVATED ON PILLOWS. ICE PROVIDED AND PT MEDICATED FOR WITH PRN PAIN MEDICATION. DISCUSSED POC. PT VERBALIZED UNDERSTANDING. IS AT BEDSIDE, PT DEMONSTRATES PROPER USE. MARY JANE ROGERS TO TRANSLATE. CALL LIGHT WITHIN REACH. WILL CONTINUE TO MONITOR.
--- NOTE | 2020-01-03 23:50 | NUR ---
PT RESTING IN BED WITH EYES CLOSED. NO APPARENT DISTRESS NOTED. IV ABT INFUSING WITHOUT DIFFICULTY. CALL LIGHT WITHIN REACH. WILL CONTINUE TO MONITOR.
[2020-01-04] VITALS (8 sets, daily range): BP systolic 132–168; BP diastolic 72–99
--- NOTE | 2020-01-04 02:54 | NUR ---
PT RESTING IN BED. NO APPARENT DISTRESS NOTED. PT VOIDED 550 CLEAR YELLOW URINE IN URINAL. GENERALIZED EDEMA NOTED. PT DENIES ANY PAIN. RIGHT FOOT ELEVATED ON PILLOWS. CALL LIGHT WITHIN REACH. WILL CONTINUE TO MONITOR.
[2020-01-04 05:36] LABS: HEMATOCRIT 23.3 % (39.0-50.0); HEMOGLOBIN 7.3 g/dl (14.0-18.0); IMMATURE GRANULOCYTES 0.9 % (0.0-5.0); MEAN CORPUSCULAR HGB 29.4 pG CALC (26.0-32.0); MEAN CORPUSCULAR HGB CONC 31.3 g/dL CAL (32.0-36.0); NEUT# 12.62 thou/uL (1.82-7.42); RED BLOOD COUNT 2.48 mill/uL (4.70-6.10); RED CELL DISTRI WIDTH 12.8 % (11.5-15.5)
[2020-01-04 06:00] LABS: CREATININE 1.9 mg/dL (0.7-1.3); POTASSIUM 4.4 mmol/l (3.5-5.1)
[2020-01-04 06:11] LABS: ALBUMIN 2.1 g/dL (3.2-5.0); BILIRUBIN, TOTAL 0.2 mg/dL (0.0-1.4); TOTAL PROTEIN 5.4 g/dL (6.3-8.2)
--- NOTE | 2020-01-04 07:32 | NUR ---
CONSENT FOR BLOOD PRODUCT OBTAINED FOR PT. EXPLAINED TO PT REASONING BEHIND TRANFUSION AND WHAT TO EXPECT. PT VERBALIZED UNDERSTANDING. REWORK MACHINE OPERATOR AT BEDSIDE OBTAINING VENIPUNCTURE FOR TYPE AND SCREEN.
--- NOTE | 2020-01-04 08:28 | NUR ---
PT SITTING IN BED. A&O X3. NO DISTRESS NOTED. GENERALIZED EDEMA NOTED. RLE ELEVATED WITH DRESSING CDI. EXPLAINED IMPORTANCE OF NWB TO EXTREMITY. PT VERBALIZED UNDERSTANDING. IS DEVICE AT BEDSIDE, PT DEMONSTRATING PROPER USE OF DEVICE WITH GOAL SET AT 1500. NO OTHER NEEDS AT THIE TIME. ASSESSMENT COMPLETED. DISCUSSED POC. CALL LIGHT IN REACH. CONTINUE TO MONITOR.
--- NOTE | 2020-01-04 09:17 | NUR ---
BLOOD TRANFUSION INITIATED BY DEANN JONES.
--- NOTE | 2020-01-04 09:30 | NUR ---
PT TOLERATING TRANSFUSION WELL. NO SIGNS OF ADVERSE REACTIONS. CONTINUE TO MONITOR.
--- NOTE | 2020-01-04 12:07 | NUR ---
TRANSFUSION COMPLETED. PT TOLERATED WELL.
--- NOTE | 2020-01-04 14:33 | NUR ---
PT note 01/04/20 Patient is seen for eval . His Am pac is 18 indicating he would do well to go home and follow up with medical as an outpatient when stable He was crutch trained and understands NWB and to limit pressure on the contralteral foot
--- NOTE | 2020-01-04 14:45 | NUR ---
ASSISTED PT TO THE BATHROOM. REINFORCED NWB TO RLE. PT INSTRUCTED ON HOW TO PROPERLY USE CRUTCHES. PT REPORTS SOME WEAKNESS. INSTRUCTED TO PULL CALL LIGHT CORD WHEN DONE
--- NOTE | 2020-01-04 15:00 | NUR ---
ASSISTED PT BACK INTO BED. EXCERTIONAL SOB NOTED. WHEEZING HEARD UPON AUSCULTATION.
--- NOTE | 2020-01-04 15:20 | NUR ---
PT C/O OF PAIN 05/05 TO RT FOOT. 2 PERCOCET GIVEN. WILL REASESS.
--- NOTE | 2020-01-04 17:10 | NUR ---
COMPLETED A BLADDER SCAN, BLADDER SCAN SHOWED 934 ML. PER PT HE HAD TO VOID, URINAL AND PRIVACY GIVEN. PT VOIDED 1000 ML OF CLEAR YELLOW URINE.
--- NOTE | 2020-01-04 18:45 | NUR ---
REPORT FROM JÚNIOR ROGERS. PT NOTED SITTING UP IN BED ON CELL PHONE. NO APPARENT DISTRESS NOTED. PT DENIES ANY PAIN OR DISCOMFORT. IV SITE APPEARS HEALTHY. GENERALIZED EDEMA NOTED. RIGHT FOOT ELEVATED ON PILLOWS. CALL LIGHT WITHIN REACH. WILL CONTINUE TO MONITOR.
--- NOTE | 2020-01-04 21:18 | NUR ---
PT MEDICATED ORDERED. PAIN MEDICATIONS AND SNACK PROVIDED WELL. PT SAFETY AND NWB STATUS REINFORCED AT THIS TIME. PT DENIES ANY OTHER WANTS OR NEEDS. TRANSLATED BY ROLANDO GUTIERREZ. CALL LIGHT WITHIN REACH. WILL CONTINUE TO MONITOR.
--- NOTE | 2020-01-04 23:46 | NUR ---
PT RESTING IN BED WITH EYES CLOSED. NO APPARENT DISTRESS NOTED. IV ABT INFUSING WITHOUT DIFFICULTY. CALL LIGHT WITHIN REACH. WILL CONTINUE TO MONITOR.
--- NOTE | 2020-01-05 03:34 | NUR ---
PT RESTING IN BED WITH EYES CLOSED. NO APPARENT DISTRESS NOTED. CALL LIGHT WITHIN REACH. WILL CONTINUE TO MONITOR.
[2020-01-05 03:48] VITALS: BP 136/72
[2020-01-05 05:01] VITALS: BP 136/72
[2020-01-05 08:00] VITALS: BP 163/85
--- NOTE | 2020-01-05 08:00 | NUR ---
PT RESTING IN BED. A&O X3. LESS GENERALIZED EDEMA NOTED. PT DENIES ANY PAIN AT THIS TIME. RLE ELEVATED. IS DEVICE AT BEDSIDE, PT DEMONSTRATED PROPER USE OF DEVICE WITH IS GOAL SET AT 1999. PT REPORTS TO BE FEELING A LITTLE BETTER TODAY. ASSESSMENT COMPLETED. DISCUSSED POC. CALL LIGHT IN REACH.CONTINUE TO MONITOR.
[2020-01-05 09:04] LABS: HEMOGLOBIN 8.3 g/dl (14.0-18.0); MEAN CELL VOLUME 93.5 fL CALC (80.0-100.0); MEAN CORPUSCULAR HGB 29.9 pG CALC (26.0-32.0); MEAN CORPUSCULAR HGB CONC 31.9 g/dL CAL (32.0-36.0); RED BLOOD COUNT 2.78 mill/uL (4.70-6.10); RED CELL DISTRI WIDTH 13.2 % (11.5-15.5)
[2020-01-05 09:16] LABS: CREATININE 2.2 mg/dL (0.7-1.3); POTASSIUM 4.7 mmol/l (3.5-5.1)
--- NOTE | 2020-01-05 10:15 | NUR ---
ASSISTED PT TO RESTROOM. REINFORCED NWB TO RLE. PT DEMONSTRATING PROPER USE OF CRUTCHES. URINE OUTPUT 550 WITH CLEAR YELLOW URINE NOTED. ASSISTED PT BACK INTO BED. ELEVATED RLE AND ADDED ICE. SLIGHT EXCERTIONAL SOB NOTED.
[2020-01-05 16:10] VITALS: BP 142/79
[2020-01-05 18:49] VITALS: BP 156/78
--- NOTE | 2020-01-05 20:00 | NUR ---
PATIENT RESTING IN BED AT THIS TIME-AWAKE ALERT AND ORIENTEDX3. MOSTLY UKRAINIAN SPEAKING. ROLANDO GUTIERREZ HERE FOR TRANSLATION. PATIENT WITH NO NEEDS VOICED AT THIS TIME. RIGHT FOOT ELEVATED ON PILLOWS AND ICE PACK PROVIDED FOR COMFORT. DREAING TO RIGHT FOOT INTACT AND SECURED WITH BENNY WRAP. SALINE LOCK TO RIGHT HAND INTACT. PATIENT STATES THAT HE IS PASSING SOME FLATUS BUT NO BM. ABD IS DISTENDED WITH HYPOACTIVE BS. OFFERED PATIENT LAXATIVE BUT HE DECLINES AT THIS TIME. VOIDING MAIA URINE IN URINAL. ENCOURAGED USE OF IS-ABLE TO DEMONSTRATE PROPER U\SE OF THE DEVICE. SCD TO LLE. SAFETY PRECAUTIONS REINFORCED. CALL LIGHT IN REACH. WILL CONT TO MONITOR.
--- NOTE | 2020-01-05 23:33 | NUR ---
PATIENT RESTING IN BED AT THIS TIME-AWAKE ALERT AND ORIENTEDX3. ROLANDO GUTIERREZ HERE TO TRANSLATE. PATIENT WITH RIGHT LE ELEVATED ON PILLOWS WITH ICE PACK FOR COMFORT. DRESSING TO RIGHT FOOT INTACT AND SECURED WITH BENNY WRAP. SCD TO LEFT LE. PATIENT WITH NO COMPLANITS AT THIS TIME. SALINE LOCK TO RIGHT HAND INTACT-APPEARS HEALTHY AT THIS TIME. ABD IS DISTENDED WITH HYPOACTIVE BS-OFFERED PATIENT LAXATIVE BUT HE DECLINES AT THIS TIME. STATES THAT HE IS PASSING FLATUS. SAFETY PRECAUTIONS REINFORCED. CALL LIGHT IN REACH. WILL CONT TO MONITOR.
--- NOTE | 2020-01-06 | NUR ---
PATIENT APPEARS SLEEPING AT THIS TIME WITH EYES CLOSED. RESPS ARE EVEN AND UNLABORED. VANCO INFUSING ORDERED. RIGHT LE ELEVATED ON PILLOWS. DRESSING TO RLE IS INTACT AND SECURED WITH BENNY WRAP. CALL LIGHT IN REACH. WILL CONT TO MONITOR.
[2020-01-06 03:55] VITALS: BP 155/86
--- NOTE | 2020-01-06 04:44 | NUR ---
PATIENT RESTING IN BED AT THIS TIME. IV SITE TO RIGHT HAND D/C'ED WITH CATH INTACT. OUTDATED. NEW IV SITE STARTED TO LEFT FOREARM-#22 GAUGE WITH GOOD BLOOD RETURN. PATIENT VOIDING MAIA URINE IN URINAL. RIGHT FOOD DRESSING REMAINS INTACT SECURED WITH BENNY WRAP. RIGHT LE IS ELEVATED ON PILLOWS. SAFETY PRECAUTIONS REINFORCED. CALL LIGHT IN REACH. WILL CONT TO MONITOR.
[2020-01-06 07:36] VITALS: BP 161/86
--- NOTE | 2020-01-06 07:36 | NUR ---
PT RESTING IN BED, NO SIGNS OF DISTRESS NOTED, RESP EVEN AND UNLABORED, PT WELSH SPEAKING ONLY, MEDICAL RESEARCH ASSISTANT SPEAKS WELSH, DISCUSSED POC, ENCOURAGED PT USE IS AND GET OUT OF BED, PT VERBALIZED UNDERSTANDING. DRESSING TO RLE CDI, ASSESSMENT COMPLETED, CALL LIGHT IN REACH,CONTINUE TO MONITOR.
[2020-01-06 08:41] LABS: HEMATOCRIT 24.5 % (39.0-50.0); MEAN CELL VOLUME 92.5 fL CALC (80.0-100.0); MEAN CORPUSCULAR HGB 30.2 pG CALC (26.0-32.0); MEAN CORPUSCULAR HGB CONC 32.7 g/dL CAL (32.0-36.0); RED BLOOD COUNT 2.65 mill/uL (4.70-6.10); RED CELL DISTRI WIDTH 13.2 % (11.5-15.5)
[2020-01-06 08:53] LABS: ALBUMIN 2.3 g/dL (3.2-5.0); CREATININE 2.1 mg/dL (0.7-1.3); POTASSIUM 4.4 mmol/l (3.5-5.1); TOTAL PROTEIN 6.2 g/dL (6.3-8.2)
[2020-01-06 08:56] LABS: BILIRUBIN, TOTAL 0.3 mg/dL (0.0-1.4)
[2020-01-06 11:30] VITALS: BP 146/80
--- NOTE | 2020-01-06 11:31 | NUR ---
PT AMBULATED FROM SHOWER TO RECLINER USING CRUTCHES AND NONWT BEARING TO RLE, PT DEMONSTRATED PROPER USE OF CRUTCHES. CALL LIGHT IN REACH,CONTINUE TO MONITOR.
[2020-01-06 11:36] VITALS: BP 146/80
--- NOTE | 2020-01-06 15:04 | NUR ---
PT RESTING IN RECLINER AT BEDSIDE WITH EYES CLOSED, NO SIGNS OF DISTRESS NOTED, RESP EVEN AND UNLABORED. CALL LIGHT IN REACH,CONTINUE TO MONITOR.
--- NOTE | 2020-01-06 16:35 | NUR ---
PT IN RECLINER, NO SIGNS OF DISTRESS NOTED, RESP EVEN AND UNLABORED. CALL LIGHT IN REACH,CONTINUE TO MONITOR.
[2020-01-06 16:53] VITALS: BP 145/80
[2020-01-06 18:57] VITALS: BP 147/80
--- NOTE | 2020-01-06 21:00 | NUR ---
PATIENT RESTING IN BED AT THIS TIME-AWAKE ALERT AND ORIENTEDX3. INDIAN SPEAKING ONLY-ROLANDO MATT HERE TO TRANSLATE. RIGHT LE IS ELEVATED ON PILLOWS. DRESSING TO RLE IS INTACT AND SECURED WITH BENNY WRAP. PATIENT MEDICATED FOR PAIN WITH PERCOCET ORDERED FOR PAIN. PATIENT STATES THAT HE DID HAVE BM TODAY AND HAVING NO DIFFICULTY WITH URINATION. IV SITE TO LEFT FOREARM INTACT-REMAINS HEALTHY AT THIS TIME. MAXIPIME HUNG ORDERED. BS-186 MEDICATED WITH LEVEMIR ORDERED AND COVERED WITH NOVALOG 1UNIT SQ FOR SS COVERAGE. SAFETY PRECAUTIONS REINFORCED. CALL LIGHT IN REACH. WILL CONT TO MONITOR.
--- NOTE | 2020-01-06 23:49 | NUR ---
PATIENT POSITIONED ON LEFT SIDE-MEDICATED WITH VANCO PO ORDERED. TAKING SIPS OF H2O. TELE MONITOR IN PLACE. IVF PATENT AND INFUSING VIA LEFT AC SITE AT 100CC/HR. SAFETY PRECAUTIONS REINFORCED. BED ALARM IN PLACE FOR PATIENT SAFETY. CALL LIGHT IN REACH. WILL CONT TO MONITOR.
--- NOTE | 2020-01-06 23:51 | NUR ---
PATIENT RESTING IN BED WITH NO COMPLAINTS AT THIS TIME. VANCO TROUGH IS 17. VANCO HUNG ORDERED VIA LEFT FOREARM SITE. RLE ELEVATED ON PILLOWS. CALL LIGHT IN REACH. WILL CONT TO MONITOR.
[2020-01-07 04:32] VITALS: BP 159/83
[2020-01-07 05:17] LABS: HEMATOCRIT 22.8 % (39.0-50.0); HEMOGLOBIN 7.3 g/dl (14.0-18.0); IMMATURE GRANULOCYTES 0.8 % (0.0-5.0); MEAN CELL VOLUME 91.2 fL CALC (80.0-100.0); MEAN CORPUSCULAR HGB 29.2 pG CALC (26.0-32.0); NEUT# 9.62 thou/uL (1.82-7.42); RED BLOOD COUNT 2.5 mill/uL (4.70-6.10); RED CELL DISTRI WIDTH 13.2 % (11.5-15.5)
[2020-01-07 05:31] LABS: POTASSIUM 4.3 mmol/l (3.5-5.1)
--- NOTE | 2020-01-07 05:50 | NUR ---
PATIENT RESTING IN BED AT THIS TIME WITH EYES CLOSED AND APPEARS SLEEPING. RESPS ARE EVEN AND UNLABORED. RLE IS ELEVATED ON PILLOWS. CALL LIGHT IN REACH. WILL CONT TO MONITOR.
--- NOTE | 2020-01-07 07:15 | NUR ---
REPORT RECEIVED FROM KAREN PERKINS;PT RESTING IN SEMI FOWLERS POSITION;RESPIRATIONS EVEN AND UNLABORED ON RA;PT DENIES ANY CURRENT PAIN OR DISCOMFORTS;RLE ELEVATED ON A PILLOW;ALL SAFETY PRECAUTIONS IN PLACE WITH BED IN THE LOWEST POSITION AND CALL LIGHT IN REACH;WILL CONTINUE TO MONITOR
[2020-01-07 09:15] VITALS: BP 161/79
--- NOTE | 2020-01-07 09:15 | NUR ---
PT RESTING IN SEMI FOWLERS POSITION,A&O X3;VS OBTAINED AND ASSESMENT COMPLTED;RESPIRATIONS EVEN AND UNLABORED ON RA,I.S. AT BEDSIDE AND PT DEMONSTRATED USAGE;ABDOMEN DISTENDED/SOFT ON PALPATION AND ACTIVE IN ALL 4 QUADRANTS;WEAK LEFT PEDAL PULSES,UNABLE TO ASSESS RT DUE TO DRESSING;DRESSING CDI AND RT FOOT ELEVATED ON A PILLOW;#22G TO LFA FLUSHED AND PATENT,ABX STARTED AT THIS TIME;PT DENIES ANY ADDITIONAL NEEDS AND IS ENCOURAGED TO CALL FOR ASSISTANCE IF NEEDED;CALL LIGHT IN REACH;WILL CONTINUE TO MONITOR
--- NOTE | 2020-01-07 11:50 | NUR ---
PT RESTING IN SEMI FOWLERS POSITION;RESPIRATIONS EVEN AND UNLABORED ON RA;PT DENIES ANY CURRENT PAIN OR NEEDS;RLE ELEVATED ON A PILLOW;ACCUCHECK 224, PT COVERED WITH SLIDING SCALE NOVOLOG PER ORDER;ASSESSMENT REMAINS UNCHANGED AT THIS TIME;PT ENCOURAGED TO CALL FOR ASSISTANCE IF NEEDED;CALL LIGHT IN REACH;WILL CONTINUE TO MONITOR
[2020-01-07 14:55] VITALS: BP 139/77
--- NOTE | 2020-01-07 15:50 | NUR ---
PT RESTING IN SEMI FOWLERS POSITION;RESPIRATIONS EVEN AND UNLABORED ON RA;PT DENIES ANY CURRENT PAIN OR NEEDS;RLE REMAINS ELEVATED ON A PILLOW;ASSESSMENT REMAINS UNCHANGED AT THIS TIME;ENCOURAGED TO CALL FOR ASSISTANCE IF NEEDED;CALL LIGHT IN REACH;WILL CONTINUE TO MONITOR
--- NOTE | 2020-01-07 16:10 | NUR ---
PT note Patient is given theraband and shown exercises for the UEs and the LLE. He is advised to avoid excessive weight bearing on the LLE but to stand NWB daily. He understands the instructions and is independent with ambualtion using his crutches NWB on the right
--- NOTE | 2020-01-07 17:15 | NUR ---
Vancomycin ordered for pharmacy to dose. PT is a 54 yrs old M who presented with cellulitis of left lower extremity. Pt was started on Vancomycin 1,250 mg IV Q8H with goal trough of 10-15 mcg/ml. Trough on 01/06/20 at 1530: 17mcg/mL. Wt: 90kg, Ht: 72 in, Scr: 0.6, CrCl: >120mL/min Change Vancomycin dose to 1,000 mg IV Q8H on 01/07/20 at 0800. Draw trough 30 minutes prior to 4th dose on 01/08/20 at 0730. Pharmacy will continue to follow.
--- NOTE | 2020-01-07 17:20 | NUR ---
Vancomycin ordered for pharmacy to dose. PT is a 54 yrs old M who presented with cellulitis. Pt currently on Vancomycin 1,250 mg IV Q24H with a goal trough of 10-15 mcg/ml. Trough on 01/06/20: 17mcg/mL. Wt: 84kg, Ht: 67 in, Scr: 2.0, CrCl: 51.3 mL/min Change Vancomycin dose to 1,000 mg IV Q24H on 01/07/20 at 2300. Draw trough 30 minutes prior to 4th dose on 01/08/20 at 2230. Pharmacy will continue to follow.
[2020-01-07 19:30] VITALS: BP 147/76
--- NOTE | 2020-01-07 19:59 | NUR ---
PATIENT RESTING IN BED AT THIS TIME-AWAKE ALERT AND ORIENTEDX3. RLE ELEVATED ON PILLOWS. DRESSING TO RIGHT FOOT IS CDI AND SECURED WITH BENNY WRAP. SALINE LOCK TO LEFT FOREARM INTACT AND IS HEALTHY AT THIS TIME. SAFETY PRECAUTIONS REINFORCED. CALL LIGHT IN REACH. WILL CONT TO MONITOR.
--- NOTE | 2020-01-07 21:15 | NUR ---
RESTING IN BED AT THIS TIME. [id number]. PATIENT MEDICATED WITH LEVEMIR 15UNITS SQ SCHEDULED AND WITH 1UINT OF NOVALOG SQ PER SS COVERAGE PROTOCOL. MAXIPIME HUNG ORDERED VIA LEFT FOREARM SITE. MEDICATED FOR RLE PAIN WITH PERCOCET.REINFORCED USE OF THE IS AND PATIENT HAS BEEN SEEN DOING THE EXERCISES ON HIS OWN WHEN IN BED.REINFORCED NWB STATUS AND VERBALIZES UNDERSTANDING. SAFETY PRECAUTIONS REINFORCED. CALL LIGHT IN REACH. WILL CONT TO MONITOR.
[2020-01-08] VITALS (7 sets, daily range): BP systolic 143–179; BP diastolic 78–88
--- NOTE | 2020-01-08 02:19 | NUR ---
PATIENT APPEARS SLEEPING AT THIS TIME. VANCO HAS FINISHED INFUSING ORDERED. RLE IS ELEVATED ON PILLOWS. DRESSING INTACT AND SECURED WITH BENNY WRAP. CALL LIGHT IN REACH. WILL CONT TO MONITOR,.
--- NOTE | 2020-01-08 07:20 | NUR ---
RECIEVED REPORT FROM KAREN PERKINS. INTRODUCED SELF TO PT. PT RESTING IN SEMI FOWLERS POSTION WITH RIGHT LEG ELEVATED. PT DENIES ANY PAIN. BED IN LOWEST POSTION WITH CALL LIGHT AND PHONE WITHIN REACH. WILL CONTIUNE TO MONITOR.
--- NOTE | 2020-01-08 07:30 | NUR ---
PT WATCHING TV IN SEMI FOLWERS POSTION WITH RIGHT FOOT ELEVATED. PT DENIES ANY PAIN. EVEN/UNLABORED BREATH SOUNDS.ACTIVE BOWEL SOUNDS IN ALL 4 QUADRANTS. STRONG RADIAL AND LEFT PEDAL PULSES. UNABLE TO DETECT RIGHT PEDAL PULSE DUE TO DRESSING. NO EDEMA TO LOWER RIGHT EXTREMETY. DRESSING IS WARM DRY AND INTACT. IV SITE FLUSHED AND APPEARS HEALTHY. VITAL SIGNS OBTAINED. BP 178/88. PULSE 70. MORNING MEDS ADMINISTERED. BED PLACED IN LOWEST POSITION WITH CALL LIGHT AND PHONE WITH IN REACH. WILL CONTINUE TO MONITOR.
[2020-01-08 08:26] LABS: ALBUMIN 2.5 g/dL (3.2-5.0); BILIRUBIN, TOTAL 0.3 mg/dL (0.0-1.4); HEMATOCRIT 26.4 % (39.0-50.0); HEMOGLOBIN 8.5 g/dl (14.0-18.0); MEAN CELL VOLUME 92.3 fL CALC (80.0-100.0); MEAN CORPUSCULAR HGB 29.7 pG CALC (26.0-32.0); MEAN CORPUSCULAR HGB CONC 32.2 g/dL CAL (32.0-36.0); POTASSIUM 4.1 mmol/l (3.5-5.1); RED BLOOD COUNT 2.86 mill/uL (4.70-6.10); RED CELL DISTRI WIDTH 13.2 % (11.5-15.5); TOTAL PROTEIN 6.7 g/dL (6.3-8.2)
--- NOTE | 2020-01-08 11:07 | NUR ---
AT BEDSIDE DISCUSSING PCOC INCLUDING PLANS TO D/C HOME,TRANSLATION PROVIDED BY [facility].PT VERBALIZES UNDERSTANDING.
--- NOTE | 2020-01-08 12:12 | NUR ---
FOLLOWED UP WITH VITALS AFTER GIVEN APRESOLINE BY KAREN PHILLIPS.VITALS OBTAINED WERE BP 159/82 AND HR 71. PT SITTING UP IN BED, EATING LUNCH AND WATCHING TV. PT DENIES ANY PAIN. BED IN LOWEST POSITION WITH CALL LIGHT AND PHONE IN PLACE. WILL CONTIUNE TO MONITOR.
[2020-01-08] MEDS ORDERED: DAPTOMYCIN500 MG IV (13:12)
[2020-01-08] MEDS ORDERED: AMLODIPINE BESYL5 MG PO (13:12)
[2020-01-08] MEDS ORDERED: LABETALOL HYDR200 MG PO (13:12)
[2020-01-08] MEDS ORDERED: GLIMEPIRIDE2 MG PO (13:12)
[2020-01-08] MEDS ORDERED: LASIX 40 MG TAB40 MG PO (13:14)
[2020-01-08] MEDS ORDERED: NOVOLIN 70/30 SC (13:16)
--- NOTE | 2020-01-08 16:00 | NUR ---
PT RESTING IN BED. WAITING FOR FRIEND TO ARRIVE AFTER 1800 FOR TRANSPORTATION HOME ALL HOME MEDS PROVIEDED BY [facility]. PT DENIES ANY PAIN. CALL LIGHT IN REACH WITH BED IN LOWEST POSTION.
--- NOTE | 2020-01-08 18:01 | NUR ---
PT GIVEN DISCHARGE PAPERS. EDUCATED ON PRESCRIBED MEDS,MONITORING BP, AND MAINTAINING GLUCOSE.PT EDUCATED TO MONITOR BP AND GLUCOSE, PT ALSO INSTRUCTED TO COME BACK TO [facility] FOR IV THERAPY AT 1230 TOMORROW 01/09/20, TO COME BACK TO [facility] IN A WEEK FOR BLOOD WORK, TO FOLLOW UP WITH DR KENT AND HEALTH DEPARTMENT, AND HOMEHEALTH TO HELP MONITOR BP. PT WAS SHOWED HOW TO USE GLUCOSE METER AND HOW TO DRAW UP INSULIN. PT REPEATED BACK HOW TO USE GLUOSE METER AND WHERE HE NEEDED TO INJECT INSULIN AND HOW MUCH. PT VERBALIZED THAT HE UNDERSTOOD. PT CURRENTLY WAITING FOR TRANSPORTATION FROM FRIEND. PT SITTING IN BED, EATING DINNER. ALL SAFTEY PRECAUTIONS IN PLACE. PT DENIES ANY PAIN. WILL CONTINUE TO MONITOR
--- NOTE | 2020-01-08 18:53 | NUR ---
Discharge instructions given. Patient verbalizes understanding of same. Discharged in stable condition via Wheelchair to Home with friend. All belongings sent with pt. PT TANSPORTED TO LOBBY IN STABLE CONDITION VIA WHEELCHAIR FOR DISCHARGE HOMEACCOPANYED BY ARIN GUTIERREZ. HOME MEDS LEFT WITH PT.
== END 2020-01-08 18:57 | DRG 853 ==
LOC: ED 14:37 → ED-I 17:30 → ED 17:47 → MS2 17:47
PROVIDERS: Internal Medicine; Nurse Practitioner Family; ADMIT Internal Medicine; ATTEND Internal Medicine
PROC: 0Y6R0Z0 Detachment at Right 2nd Toe, Complete, Open Approach (ICD-10-PCS; principal; 2019-12-31)
PROC: 0Y6M0Z9 Detachment at Right Foot, Partial 1st Ray, Open Approach (ICD-10-PCS; 2020-01-03)
PROC: 0Y6M0ZB Detachment at Right Foot, Partial 2nd Ray, Open Approach (ICD-10-PCS; 2020-01-03)
PROC: 0Y6M0ZC Detachment at Right Foot, Partial 3rd Ray, Open Approach (ICD-10-PCS; 2020-01-03)
PROC: 0Y6M0ZD Detachment at Right Foot, Partial 4th Ray, Open Approach (ICD-10-PCS; 2020-01-03)
PROC: 0Y6M0ZF Detachment at Right Foot, Partial 5th Ray, Open Approach (ICD-10-PCS; 2020-01-03)
PROC: 0L8N3ZZ Division of Right Lower Leg Tendon, Percutaneous Approach (ICD-10-PCS; 2020-01-03)
PROC: 0HXMXZZ Transfer Right Foot Skin, External Approach (ICD-10-PCS; 2020-01-03)
PROC: 30233N1 Transfusion of Nonautologous Red Blood Cells into Peripheral Vein, Percutaneous Approach (ICD-10-PCS; 2020-01-04)
DX: A41.9 Sepsis, unspecified organism (principal); N17.0 Acute kidney failure with tubular necrosis; L03.115 Cellulitis of right lower limb; E11.52 Type 2 diabetes mellitus with diabetic peripheral angiopathy with gangrene; I96 Gangrene, not elsewhere classified; L02.611 Cutaneous abscess of right foot; J98.11 Atelectasis; D64.9 Anemia, unspecified; E11.621 Type 2 diabetes mellitus with foot ulcer; L97.519 Non-pressure chronic ulcer of other part of right foot with unspecified severity; E11.65 Type 2 diabetes mellitus with hyperglycemia; I10 Essential (primary) hypertension; T36.8X5A Adverse effect of other systemic antibiotics, initial encounter; B95.62 Methicillin resistant Staphylococcus aureus infection as the cause of diseases classified elsewhere; Z79.84 Long term (current) use of oral hypoglycemic drugs
CPT/HCPCS: J0131; J0461; J0692; J1650; J1756; J3370; P9016; Q9967

== ENCOUNTER 2021-10-01 19:26 | Emergency (ER) | payer SELFPAY ==
[~2021-10-01] VITALS: Ht 180.3 cm; Wt 85.0 kg
[~2021-10-01 19:26] MED LIST: AMLODIPINE BESYL5 MG PO; DAPTOMYCIN500 MG IV; GLIMEPIRIDE2 MG PO; LABETALOL HYDR200 MG PO; LASIX 40 MG TAB40 MG PO; METFORMIN HCL500 M1 PO; NOVOLIN 70/30 SC
[2021-10-01] MEDS ORDERED: INSULIN (20:00)
[2021-10-01 21:51] LABS: IMMATURE GRANULOCYTES 0.1 % (0.0-5.0); MEAN CELL VOLUME 95.6 fL CALC (80.0-100.0); MEAN CORPUSCULAR HGB CONC 32.4 g/dL CAL (32.0-36.0); NEUT# 6.51 thou/uL (1.82-7.42); RED BLOOD COUNT 3.42 mill/uL (4.70-6.10); RED CELL DISTRI WIDTH 12.9 % (11.5-15.5)
[2021-10-01 21:52] LABS: HEMATOCRIT 32.7 % (39.0-50.0); HEMOGLOBIN 10.6 g/dl (14.0-18.0)
[2021-10-01 22:14] LABS: POTASSIUM 4.2 mmol/l (3.5-5.1)
[2021-10-01 22:16] LABS: CREATININE 3.6 mg/dL (0.7-1.3)
[2021-10-01 22:26] LABS: URINE BILIRUBIN - DIPSTICK NEGATIVE (NEGATIVE); URINE BLOOD DIPSTICK MODERATE (NEGATIVE); URINE COLOR YELLOW; URINE GLUCOSE - DIPSTICK NEGATIVE (NEGATIVE); URINE KETONE NEGATIVE (NEGATIVE); URINE LEUK ESTERASE NEGATIVE (NEGATIVE); URINE PROTEIN - DIPSTICK 100 mg/dL (NEG-TRACE); URINE SPECIFIC GRAVITY >=1.030; URINE UROBILINOGEN - DIPSTICK 0.2 E.U./dL (0.2)
[2021-10-01 22:41] LABS: URINE NITRITE - DIPSTICK NEGATIVE (Negative)
[2021-10-02 00:30] VITALS: BP 141/85
== END 2021-10-02 00:30 | disposition left against medical advice (07) | DRG 639 ==
LOC: ED 19:26
PROVIDERS: Emergency Medicine
DX: E11.649 Type 2 diabetes mellitus with hypoglycemia without coma (principal); E11.22 Type 2 diabetes mellitus with diabetic chronic kidney disease; N18.9 Chronic kidney disease, unspecified; Z79.4 Long term (current) use of insulin; Z91.19 Patient's noncompliance with other medical treatment and regimen

== ENCOUNTER 2022-06-15 12:42 | Inpatient (IN) | payer SELFPAY ==
[~2022-06-15] VITALS: Ht 180.3 cm; Wt 94.2 kg
[2022-06-15] VITALS (63 sets, daily range): BP systolic 150–217; BP diastolic 75–148
[~2022-06-15 12:42] MED LIST changes: +INSULIN
[2022-06-15 13:48] LABS: HEMATOCRIT 32.2 % (39.0-50.0); HEMOGLOBIN 10.7 g/dl (14.0-18.0); IMMATURE GRANULOCYTES 0.3 % (0.0-5.0); MEAN CELL VOLUME 91.7 fL CALC (80.0-100.0); MEAN CORPUSCULAR HGB 30.5 pG CALC (26.0-32.0); MEAN CORPUSCULAR HGB CONC 33.2 g/dL CAL (32.0-36.0); NEUT# 6.85 thou/uL (1.82-7.42); RED BLOOD COUNT 3.51 mill/uL (4.70-6.10); RED CELL DISTRI WIDTH 12.7 % (11.5-15.5)
[2022-06-15 13:52] LABS: ALBUMIN 3.6 g/dL (3.2-5.0); BILIRUBIN, TOTAL 0.4 mg/dL (0.0-1.4); CREATININE 3.8 mg/dL (0.7-1.3); POTASSIUM 4.7 mmol/l (3.5-5.1); TOTAL PROTEIN 8.2 g/dL (6.3-8.2)
[2022-06-15 13:54] LABS: INTERNATIONAL NORMALIZED RATIO 1.1 RATIO (0.7-1.3); PROTHROMBIN TIME 10.6 SECONDS (9.0-12.5)
[2022-06-16] VITALS (143 sets, daily range): BP systolic 139–185; BP diastolic 62–103
[2022-06-16 04:56] LABS: HEMATOCRIT 27.1 % (39.0-50.0); MEAN CELL VOLUME 91.9 fL CALC (80.0-100.0); MEAN CORPUSCULAR HGB 30.5 pG CALC (26.0-32.0); MEAN CORPUSCULAR HGB CONC 33.2 g/dL CAL (32.0-36.0); RED BLOOD COUNT 2.95 mill/uL (4.70-6.10); RED CELL DISTRI WIDTH 12.9 % (11.5-15.5)
[2022-06-16 05:07] LABS: BILIRUBIN, TOTAL 0.3 mg/dL (0.0-1.4); CHOLESTEROL HDL RATIO 7.1 (<4.4 (CALC)); CREATININE 3.7 mg/dL (0.7-1.3); MAGNESIUM 1.8 mg/dL (1.6-2.3); POTASSIUM 4.4 mmol/l (3.5-5.1); TOTAL PROTEIN 6.6 g/dL (6.3-8.2)
[2022-06-16] MEDS ORDERED: ZESTRIL40 MG PO (13:00)
[2022-06-16] MEDS ORDERED: AMARYL4 MG PO (13:00)
[2022-06-16] MEDS ORDERED: METFORMIN HCL500 M1 PO (13:01)
[2022-06-16] MEDS ORDERED: HYDROCHLOROT25 MG PO (13:02)
[2022-06-16] MEDS ORDERED: AMLODIPINE BESY10 MG PO (13:02)
[2022-06-17] VITALS (66 sets, daily range): BP systolic 132–181; BP diastolic 59–96
[2022-06-17 05:57] LABS: CREATININE 3.9 mg/dL (0.7-1.3); MAGNESIUM 1.9 mg/dL (1.6-2.3); POTASSIUM 4.8 mmol/l (3.5-5.1)
[2022-06-18] VITALS (31 sets, daily range): BP systolic 130–185; BP diastolic 59–93
[2022-06-18 05:14] LABS: ALBUMIN 2.9 g/dL (3.2-5.0); CREATININE 4.5 mg/dL (0.7-1.3); POTASSIUM 4.9 mmol/l (3.5-5.1)
[2022-06-18 11:22] LABS: URINE BILIRUBIN - DIPSTICK NEGATIVE (NEGATIVE); URINE BLOOD DIPSTICK TRACE-INTACT (NEGATIVE); URINE COLOR YELLOW; URINE GLUCOSE - DIPSTICK 250 mg/dL (NEGATIVE); URINE KETONE NEGATIVE (NEGATIVE); URINE LEUK ESTERASE NEGATIVE (Negative); URINE NITRITE - DIPSTICK NEGATIVE (Negative); URINE PROTEIN - DIPSTICK >=300 mg/dL (NEG-TRACE); URINE SPECIFIC GRAVITY 1.025; URINE UROBILINOGEN - DIPSTICK 0.2 E.U./dL (0.2)
[2022-06-18 11:25] LABS: URINE CLARITY SL CLOUDY
[2022-06-18 11:37] LABS: URINE RBC 0-2 RBC/hpf (0-5)
[2022-06-18 11:46] LABS: URINE WBC 0-2 WBC/hpf (0-5)
[2022-06-18 11:50] LABS: URINE COARSE GRANULAR CAST RARE lpf; URINE HYALINE CAST FEW lpf (NONE-RARE)
[2022-06-18 11:51] LABS: URINE SQUAMOUS EPITHELIAL CELL RARE EPI/hpf (0-FEW)
[2022-06-19] VITALS (17 sets, daily range): BP systolic 147–181; BP diastolic 78–93
[2022-06-19 05:20] LABS: HEMOGLOBIN 8.9 g/dl (14.0-18.0); MEAN CORPUSCULAR HGB 30.5 pG CALC (26.0-32.0); MEAN CORPUSCULAR HGB CONC 30.7 g/dL CAL (32.0-36.0); RED BLOOD COUNT 2.92 mill/uL (4.70-6.10); RED CELL DISTRI WIDTH 13.5 % (11.5-15.5)
[2022-06-19 05:30] LABS: MEAN CELL VOLUME 99.3 fL CALC (80.0-100.0)
[2022-06-19 05:45] LABS: ALBUMIN 2.9 g/dL (3.2-5.0); CREATININE 4.1 mg/dL (0.7-1.3); MAGNESIUM 2.2 mg/dL (1.6-2.3)
[2022-06-19 05:47] LABS: POTASSIUM 5.6 mmol/l (3.5-5.1)
[2022-06-20] VITALS (7 sets, daily range): BP systolic 150–183; BP diastolic 67–88
[2022-06-20 04:58] LABS: HEMATOCRIT 27.7 % (39.0-50.0); HEMOGLOBIN 8.7 g/dl (14.0-18.0); IMMATURE GRANULOCYTES 0.6 % (0.0-5.0); MEAN CELL VOLUME 96.9 fL CALC (80.0-100.0); MEAN CORPUSCULAR HGB 30.4 pG CALC (26.0-32.0); MEAN CORPUSCULAR HGB CONC 31.4 g/dL CAL (32.0-36.0); NEUT# 5.25 thou/uL (1.82-7.42); RED BLOOD COUNT 2.86 mill/uL (4.70-6.10); RED CELL DISTRI WIDTH 13.6 % (11.5-15.5)
[2022-06-20 05:12] LABS: CREATININE 4.1 mg/dL (0.7-1.3); POTASSIUM 4.8 mmol/l (3.5-5.1)
[2022-06-21 00:29] VITALS: BP 157/71
[2022-06-21 04:46] VITALS: BP 176/82
[2022-06-21 05:25] LABS: HEMATOCRIT 28.2 % (39.0-50.0); HEMOGLOBIN 8.9 g/dl (14.0-18.0); IMMATURE GRANULOCYTES 0.5 % (0.0-5.0); MEAN CELL VOLUME 96.6 fL CALC (80.0-100.0); MEAN CORPUSCULAR HGB 30.5 pG CALC (26.0-32.0); MEAN CORPUSCULAR HGB CONC 31.6 g/dL CAL (32.0-36.0); NEUT# 5.43 thou/uL (1.82-7.42); RED BLOOD COUNT 2.92 mill/uL (4.70-6.10); RED CELL DISTRI WIDTH 13.6 % (11.5-15.5)
[2022-06-21 05:47] LABS: ALBUMIN 3.2 g/dL (3.2-5.0); POTASSIUM 4.4 mmol/l (3.5-5.1)
[2022-06-21 06:32] VITALS: BP 190/59
[2022-06-21 06:33] VITALS: BP 190/59
[2022-06-21 08:54] VITALS: BP 174/75
[2022-06-21 10:10] VITALS: BP 150/66
[2022-06-21] MEDS ORDERED: NORMODYNE/TRAN100 MG PO (12:12)
[2022-06-21] MEDS ORDERED: AMLODIPINE BESY10 MG PO (12:13)
[2022-06-21] MEDS ORDERED: VITAMIN D2000 UNI2 PO (12:13)
[2022-06-21] MEDS ORDERED: HYDRALAZINE100 MG PO (12:14)
[2022-06-21] MEDS ORDERED: CLONIDINE0.2 MG PO (12:15)
[2022-06-21] MEDS ORDERED: LASIX 40 MG TAB40 MG PO (12:22)
== END 2022-06-21 13:36 | disposition home or self-care (01) | DRG 291 ==
LOC: ED 12:42 → ED-I 15:00 → ED 15:24 → ICU 15:25 → MS2 06-19 11:35
PROVIDERS: Internal Medicine; Internal Medicine Nephrology; Nurse Practitioner; ADMIT Internal Medicine; ATTEND Internal Medicine
PROC: 3E02340 Introduction of Influenza Vaccine into Muscle, Percutaneous Approach (ICD-10-PCS; principal; 2022-06-16)
PROC: 3E0234Z Introduction of Serum, Toxoid and Vaccine into Muscle, Percutaneous Approach (ICD-10-PCS; 2022-06-16)
DX: I13.0 Hypertensive heart and chronic kidney disease with heart failure and stage 1 through stage 4 chronic kidney disease, or unspecified chronic kidney disease (principal); I50.31 Acute diastolic (congestive) heart failure; N18.4 Chronic kidney disease, stage 4 (severe); E87.1 Hypo-osmolality and hyponatremia; E87.2 Acidosis; I16.0 Hypertensive urgency; E11.22 Type 2 diabetes mellitus with diabetic chronic kidney disease; E11.40 Type 2 diabetes mellitus with diabetic neuropathy, unspecified; E86.9 Volume depletion, unspecified; D63.1 Anemia in chronic kidney disease; T46.5X6A Underdosing of other antihypertensive drugs, initial encounter; Z79.4 Long term (current) use of insulin; Z89.421 Acquired absence of other right toe(s); Z91.128 Patient's intentional underdosing of medication regimen for other reason; Z20.822 Contact with and (suspected) exposure to COVID-19; Z23 Encounter for immunization
CPT/HCPCS: J1756; J3420